=== PATIENT | male | born 1980 | race Caucasian/White ===

== ENCOUNTER 2023-06-09 13:59 | Observation (INO) | payer OTHER, SELFPAY ==
--- NOTE | ~2023-06-09 | XR_ITS ---
EXAMINATION: [id number] INDICATION: Nasogastric tube insertion TECHNIQUE: Portable AP abdomen COMPARISON: None available FINDINGS: A nasogastric tube is in the stomach. The visualized lung bases are clear. The bowel gas pa ttern is unremarkable. IMPRESSION: 1. Nasogastric tube in the stomach. Reviewed, dictated and finalized at location B.
--- NOTE | ~2023-06-09 | CT_ITS ---
EXAMINATION: CT abdomen pelvis w con INDICATION: Right sided abdominal TECHNIQUE: Computed tomographic images of the abdomen and pelvis were obtained after the administrati on of 100 cc of Omnipaque 350 intravenous contrast. The dose-length product (DLP) was 351.00 mGy-cm. Automated exposure control and iterative reconstruction technique were employed. COMPARISON: None available FINDINGS: The lung bases are clear. The heart size is normal. A nasogastric tube is in the stomach. T he liver, spleen, pancreas, gallbladder, and adrenal glands are normal. The kidneys are unremarkable. No pathologically enlarged abdominal or pelvic lymph nodes are identified. No free intraperitoneal g as or evidence of bowel obstruction. The appendix is normal. There is a small left inguinal hernia co ntaining fat. There is an age-indeterminate superior endplate fracture of L1. IMPRESSION: 1. No CT correlate for the patient's symptoms. Reviewed, dictated and finalized at location B.
--- NOTE | 2023-06-09 14:08 | PC.NURSE ---
pt laying on ground outside then pacing in and out of department.
[2023-06-09 14:17] VITALS: BP 132/98; PULSE 63; RESP 20; TEMP 35.8; O2SAT 100
--- NOTE | 2023-06-09 14:26 | PC.NURSE ---
Pts license given back to patient, pt returned to [facility] to await room.
[2023-06-09 14:37] LABS: Basophils Absolute Auto 0.1 K/mm3 (0.0-0.1); Basophils Percent Auto 0.5 % (0.2-1.2); Eosinophils Percent Auto 0.1 % (0-4.4); Hematocrit 38.3 % (37.0-47.0); Hemoglobin 12.5 g/dL (12.0-15.0); Immature Granulocyte Absolute 0.12 K/mm3 (0.00-0.031); Immature Granulocyte Percent A 0.6 % (0-0.5); Lymphocytes Absolute Auto 0.51 K/mm3 (0.9-3.2); Lymphocytes Percent Auto 2.6 % (18.3-44.2); Mean Corpuscular HGB Conc 32.6 g/dl (32-36); Mean Corpuscular Hemoglobin 27.3 pg (26-34); Mean Corpuscular Volume 83.6 fl (80-100); Mean Platelet Volume 11.3 fl (7.4-10.4); Monocytes Absolute Auto 0.8 K/mm3 (0.1-0.6); Monocytes Percent Auto 4.2 % (2.6-8.5); Neutrophils Absolute Auto 18.4 K/mm3 (1.3-6.7); Platelet Count Result 281 k/mm3 (150-375); Red Blood Count 4.58 M/mm3 (4.2-5.4); Red Cell Distribution Width 15.1 % (11.5-14.5)
[2023-06-09 14:48] LABS: Alanine Aminotransferase 18 U/L (6-35); Albumin Level 2.7 g/dL (3.5-5.1); Alkaline Phosphatase 54 U/L (38-126); Anion Gap 9 mmol/L (8-16); Aspartate Amino Transferase 20 U/L (14-36); Bilirubin,Total 0.5 mg/dL (0.2-1.3); Blood Urea Nitrogen 12 mg/dL (7-17); Calcium 5.4 mg/dL (8.4-10.2); Carbon Dioxide 13 mmol/L (22-30); Chloride 119 mmol/L (98-107); Estimated CRCL calculation 156 ml/min; Estimated Glomerular Filt Rate > 60; Glucose 103 mg/dL (65-110); Lipase 23 U/L (23-300); Potassium 2.2 mmol/L (3.4-5.0); Sodium 141 mmol/L (137-145)
[2023-06-09 14:51] LABS: Appearance Urine Clear (Clear); Bacteria Urine None Seen /hpf; Bilirubin Urine Negative (Negative); Blood Urine Negative (Negative); Color Urine Dark Yellow (Yellow); Glucose Urine UA Negative (Negative); Ketones Urine 4+ mg/dL (Negative); Leukocyte Esterase Ur Trace LEU/UL (Negative); Nitrate Urine Negative (Negative); Non Pathogenic Casts 0-2; Protein Urine 1+ mg/dL (Negative); RBC Urine 0-2 /hpf (0-2); Specific Grav Ur 1.027 (1.001-1.035); Squamous Epithelial Cell Urine None seen /hpf (Few); WBC Urine 0-5 /hpf; pH Urine 8.5 (5.0-9.0)
[2023-06-09 14:59] LABS: Add Urine Microscopic? YES
--- NOTE | 2023-06-09 15:02 | ECG_ITS ---
Measurements Intervals [place] Rate: 64 P: 69 MO: 171 QRS: -37 QRSD: 101 T: 15 QT: 463 QTc: 481 Interpretive Statements SINUS RHYTHM WITH MARKED SINUS ARRHYTHMIA VERSUS BLOCKED PACS MARKED LEFT AXIS DEVIATION [QRS AXIS < -30] ABNORMAL ECG NO PREVIOUS ECG AVAILABLE FOR COMPARISON Electronically Signed On 06-09-2023 17:17:41 CDT by Andrei Enamorado M.D.
--- NOTE | 2023-06-09 15:07 | PC.NURSE ---
Pt attempting to drink water from sink in joining room, re directed multiple times and advised to not drink anything. EDP Dr Potter also re directed pt when he was found with his head under the sink drinking water.
[2023-06-09] MEDS: ONDANSETRON INJ 4 MG/2 ML VIAL IV PUSH (15:17)
[2023-06-09] MEDS: SODIUM CHLORIDE 0.9% IV 1,000 ML 999 ML IV CONT ×2 (15:17→19:35)
[2023-06-09] MEDS: LORazepam INJ (*CRX) 2 MG/ML VIAL 0.5 MG IV PUSH (15:18)
--- NOTE | 2023-06-09 15:42 | PC.NURSE ---
pt to CT via stretcher at this time
[2023-06-09] MEDS: PROMETHAZINE HCL 25 MG/ML AMPUL 12.5 MG IV PUSH (16:07)
[2023-06-09] MEDS: POTASSIUM CHLORIDE INJ 40 MEQ in SODIUM CHLORIDE 0.9% IV 500 ML 130 MEQ IVPB (16:14)
[2023-06-09] MEDS: MORPHINE SULFATE (*CRX) 4 MG/ML INJ IV PUSH ×2 (16:37→21:32)
[2023-06-09 16:46] VITALS: BP 133/89; PULSE 74; RESP 18; O2SAT 100
--- NOTE | 2023-06-09 16:46 | PC.NURSE ---
Pt continues to drink water from the sink, again re directed and advised to remain NPO.
[2023-06-09 17:24] VITALS: BP 155/95; PULSE 63; RESP 20; O2SAT 100
[2023-06-09 17:49] LABS: Alanine Aminotransferase 29 U/L (6-50); Albumin Level 4.9 g/dL (3.5-5.1); Alkaline Phosphatase 73 U/L (38-126); Aspartate Amino Transferase 39 U/L (17-59); Blood Urea Nitrogen 16 mg/dL (9-20); Carbon Dioxide 21 mmol/L (22-30); Chloride 105 mmol/L (98-107); Estimated CRCL calculation 119 ml/min; Estimated Glomerular Filt Rate > 60; Glucose 116 mg/dL (65-110); Potassium 3.8 mmol/L (3.4-5.0)
[2023-06-09 17:55] LABS: Anion Gap 12 mmol/L (8-16); Sodium 138 mmol/L (137-145)
--- NOTE | 2023-06-09 18:04 | ED.GENADULT ---
HPI - General Adult General Chief complaint: Nausea/Vomiting/Diarrhea Stated complaint: abd pain/dry heaves Time Seen by Provider: 06/09/23 14:57 History of Present Illness HPI narrative: Patient is a 43-year-old male who presents to the ER with abdominal pain and vomiting. Pain began last night. Right-sided. He believes it is related to diverticulitis he has had in the past. Reports it causes him to have severe emesis. Denies history of cyclic vomiting. Denies marijuana use but he did tell the nurse that he took some Gummies last night. No fevers or chills or sweats. Patient continues to get up and walk to the sink to drink water and then promptly vomits. Related Data Allergies Allergy/AdvReac Type Severity Reaction Status Date / Time No Known Allergies Allergy Verified 06/09/23 14:59 Review of Systems Review of Systems: All systems reviewed & are unremarkable except as noted in HPI and below Constitutional: Constitutional: Denies chills and Denies fever(s) ENT: Denies nasal congestion and Denies sore throat Cardiovascular: Cardiovascular: Denies chest pain, Denies rapid heart rate and Denies radiating jaw, neck or arm pain Respiratory: Respiratory: Denies cough and Denies dyspnea Gastrointestinal: Gastrointestinal: Reports abdominal pain, Denies constipation, Denies diarrhea, Reports nausea and Reports vomiting Genitourinary: Genitourinary: Denies oliguria and Denies urinary frequency PMFSH Past Medical History Medical History (Updated 06/09/23 @ 19:12 by Josue Potter MD) Diverticulitis Surgical History Surgical History (Updated 06/09/23 @ 19:07 by Josue Potter MD) No history of previous surgery Exam Narrative: GENERAL: Well appearing and actively vomiting, well-nourished. HEAD: Normocephalic, atraumatic. EYES: PERRL and EOMI. ENT: Mucous membranes moist. NECK: Supple. CHEST: Clear to auscultation. No respiratory distress. HEART: Regular rate and rhythm. Normal peripheral pulses. ABDOMEN: Soft, tender to palpation right abdomen with guarding both upper and lower quadrants. Nondistended, normal active bowel sounds. EXTREMITIES: Normal range of motion. No edema. SKIN: Warm, dry, no rash. NEURO: Alert and oriented x3. PSYCH: Normal mood and affect. Course Course Emergency Course: Patient improving with Zofran/Phenergan/Ativan/morphine. Admit to hospital service. Replacing potassium. Vital Signs Vital signs: Vital Signs Temperature 96.4 F L 06/09/23 14:17 Pulse Rate 63 06/09/23 14:17 Respiratory Rate 20 06/09/23 14:17 Blood Pressure 132/98 H 06/09/23 14:17 Pulse Oximetry 100 06/09/23 14:17 Oxygen Delivery Room Air 06/09/23 14:17 Temperature 96.4 F L 06/09/23 14:17 Pulse Rate 63 06/09/23 17:24 Respiratory Rate 20 06/09/23 17:24 Blood Pressure 155/95 H 06/09/23 17:24 Pulse Oximetry 100 06/09/23 17:24 Oxygen Delivery Room Air 06/09/23 14:17 Medical Decision Making Vital Signs Vital Signs: Vital Signs Temperature 96.4 F L 06/09/23 14:17 Pulse Rate 63 06/09/23 14:17 Respiratory Rate 20 06/09/23 14:17 Blood Pressure 132/98 H 06/09/23 14:17 Pulse Oximetry 100 06/09/23 14:17 Oxygen Delivery Room Air 06/09/23 14:17 Temperature 96.4 F L 06/09/23 14:17 Pulse Rate 63 06/09/23 17:24 Respiratory Rate 20 06/09/23 17:24 Blood Pressure 155/95 H 06/09/23 17:24 Pulse Oximetry 100 06/09/23 17:24 Oxygen Delivery Room Air 06/09/23 14:17 Lab Data 06/09/23 14:25 06/09/23 17:23 Labs: Lab Results 06/09/23 06/09/23 Range/Units 14:25 14:32 WBC 20.0 H (4.5-10.0) K/mm3 RBC 4.58 (4.2-5.4) M/mm3 Hgb 12.5 (12.0-15.0) g/dL Hct 38.3 (37.0-47.0) % MCV 83.6 (80-100) fl MCH 27.3 (26-34) pg MCHC 32.6 (32-36) g/dl RDW 15.1 H (11.5-14.5) % Plt Count 281 (150-375) k/mm3 MPV 11.3 H (7.4-10.4) fl Immature Gran % (Auto) 0.6 H (0
--- NOTE | 2023-06-09 18:04 | PC.NURSE ---
Potassium infusion stopped per EDP Dr. Tariq APPLE
--- NOTE | 2023-06-09 18:05 | PC.NURSE ---
This RN observed pt with head under faucet drinking the water and redirected the pt and advised him to not drink from the faucet
[2023-06-09] MEDS: MORPHINE SULFATE (*CRX) 2 MG/ML INJ IV PUSH (18:59)
[2023-06-09] MEDS: METOCLOPRAMIDE HCL INJ 10 MG/2 ML VIAL 5 MG IV PUSH (19:00)
--- NOTE | 2023-06-09 19:25 | PC.NURSE ---
This RN assumed care of patient. This RN took pt report from VIRAL [place].
[2023-06-09 20:00] VITALS: BP 124/69; PULSE 79; RESP 14; TEMP 36.4; O2SAT 98
--- NOTE | 2023-06-09 20:32 | PM.IMHP ---
H&P: HPI History of Present Illness Date/Time: 06/09/23 20:32 Chief Complaint: Intractable nausea vomiting and abdominal pain Narrative: This is a 43-year-old male with past medical history of diverticulitis diagnosed in January of this year, who throws up once a week, who is presenting with a 1 day history of acute abdominal pain with dry heaving, and nonbloody nonbilious liquidy nausea and vomiting. The patient reports a chronic history of nausea and vomiting. Acutely he started throwing up last night, a ton of liquid, and presents here now. He reports a presentation last summer and [facility] at [facility] of significant nausea vomiting abdominal pain which was diagnosed as diverticulosis that could become diverticulitis on colonoscopy. The patient also reports a chronic history of constipation and acutely he says it has been 24 hour since he has had a bowel movement. He says he tries to go and he cannot and this exacerbates his abdominal pain. He also reports dehydration and he was found to constantly be drinking under the faucets during his emergency department visit here. The patient's current symptoms are high anxiety and high stomach pain. He reports the morphine, normal saline, Zofran, Ativan, promethazine helped his symptoms for about 30 minutes and now he has the symptoms again. To me he denied any history of drug use, but to the ER he reported that he does take marijuana gummies. His social history is interesting. He has 2 jobs which stress [employer] lot. 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 His other medical problems include some sort of respiratory issue for which she uses a rescue inhaler. This is not on his medication profile. His medication history also includes Lexapro and Protonix. Per him. He is allergic to pollen and mold. In the emergency room he is noted to be extremely restless, agitated, getting up and moving around a lot in the room. I also saw him making multiple attempts to dry heave in the sink. Initial set of labs in the ER noted significant electrolyte abnormalities. However repeat labs showed that these were incorrect lab numbers. Review of Systems Review of Systems: Otherwise unremarkable, see HPI. [facility] Past Medical History Medical History (Updated 06/09/23 @ 20:46 by Guille Holden MD) Diverticulitis Surgical History Surgical History (Updated 06/09/23 @ 19:07 by Josue Potter MD) No history of previous surgery Social History Social History Smoking status: Never smoker Substance use type: marijuana Lack of Transportation: YES Lack of Food: Often True Current Housing: I Have Housing Concerned About Future Housing: No Difficulty Paying Gas/Electric Bills: YES Difficulty Paying for Meds: YES Currently Unemployed: No Education: Bachelor's Degree Difficulty w/ Childcare or Family Care: No Spiritual care concerns: No Comments See HPI Meds Home Medications and Allergies Home Medications Medication Instructions Recorded Confirmed Type trazodone 100 mg tablet 150 mg PO HS 06/09/23 06/09/23 History Vital Signs Vital Signs - 24 hr 06/09/23 14:17 06/09/23 16:46 06/09/23 17:24 Temperature 96.4 F L Pulse Rate 63 74 63 Respiratory Rate 20 18 20 Blood Pressure 132/98 H 133/89 155/95 H Pulse Oximetry 100 100 100 Oxygen Delivery Room Air Exam Narrative: Gen: in acute distress. moving around the room a lot HENT: unremarkable Neck: Supple, full ROM Chest: Tachypnea. no abnormal resp. sounds. CTAB CV: tachycardic, nl s1/s2, no murmurs Abd: soft, ttp in multiple quadrants. bs not heard. Ext: No LE Edema Psych: Very restless and agitative. Appears to be withdrawing off some substance. Neuro: no deficits H&P: Results Labs Labs: Short CBC 06/09/23 Range/Units 14:25 WBC 20.0 H (4.5-10.0) K/mm3 Hgb 12.5 (12.0-15.0) g/dL Hct
--- NOTE | 2023-06-09 20:33 | ADMGEN ---
This patient, Mario Mcclain, was admitted to Virtual Bed 3rd Floor-1. Patient/family oriented to hospital policies and general routines including ID bracelet, bed and alarms, visiting hours, pain management, procedures, bathroom and other care routines, personal items, smoking policy, room service/diet, and visiting hours. Information on how to activate the Rapid Response Team has been discussed. Patient/Family are encouraged to report perceived risks to care and to ask questions if they do not understand what they are told or what they should do.
[2023-06-09 21:16] VITALS: BMI 24.6
[2023-06-09] MEDS: SODIUM CHLORIDE 0.9% IV 1,000 ML 100 ML IV CONT (21:21)
[2023-06-09] MEDS: traZODone HCL 50 MG TABLET 150 MG PO (21:21)
[2023-06-09 21:56] VITALS: BP 113/59; PULSE 76; RESP 14; TEMP 36.7; O2SAT 100
[2023-06-10] MEDS: MORPHINE SULFATE (*CRX) 4 MG/ML INJ IV PUSH (01:48)
[2023-06-10 05:35] VITALS: BP 107/52; PULSE 65; RESP 13; TEMP 36.2; O2SAT 97
[2023-06-10] MEDS: POTASSIUM CHLORIDE 20 MEQ PACKET (FOR LIQUID) 40 MEQ PO (08:17)
[2023-06-10 08:29] LABS: Basophils Percent Auto 0.3 % (0.2-1.2); Eosinophils Absolute Auto 0.1 K/mm3 (0-0.3); Eosinophils Percent Auto 0.8 % (0-4.4); Hematocrit 36.1 % (42.0-52.0); Hemoglobin 11.8 g/dL (14.0-18.0); Immature Granulocyte Absolute 0.05 K/mm3 (0.00-0.031); Immature Granulocyte Percent A 0.4 % (0-0.5); Lymphocytes Absolute Auto 1.67 K/mm3 (0.9-3.2); Lymphocytes Percent Auto 14.2 % (18.3-44.2); Mean Corpuscular HGB Conc 32.7 g/dl (32-36); Mean Corpuscular Hemoglobin 27.4 pg (26-34); Monocytes Absolute Auto 1.1 K/mm3 (0.1-0.6); Monocytes Percent Auto 9.4 % (2.6-8.5); Neutrophils Absolute Auto 8.8 K/mm3 (1.3-6.7); Neutrophils Percent Auto 74.9 % (45.5-73.1); Platelet Count Result 244 k/mm3 (150-375); Red Cell Distribution Width 15.6 % (11.5-14.5); White Blood Count 11.8 K/mm3 (4.5-10.0)
[2023-06-10 08:38] LABS: Alanine Aminotransferase 23 U/L (6-50); Albumin Level 4.3 g/dL (3.5-5.1); Alkaline Phosphatase 72 U/L (38-126); Anion Gap 10 mmol/L (8-16); Aspartate Amino Transferase 31 U/L (17-59); Bilirubin,Total 0.5 mg/dL (0.2-1.3); Blood Urea Nitrogen 12 mg/dL (9-20); Calcium 8.4 mg/dL (8.4-10.2); Carbon Dioxide 23 mmol/L (22-30); Chloride 105 mmol/L (98-107); Estimated CRCL calculation 136 ml/min; Estimated Glomerular Filt Rate > 60; Glucose 89 mg/dL (65-110); Potassium 3.6 mmol/L (3.4-5.0); Sodium 138 mmol/L (137-145)
--- NOTE | 2023-06-10 10:25 | PM.IMPN ---
Progress Note: A&P Assessment and Plan (1) Cyclical vomiting syndrome: Code(s): R11.15 - Cyclical vomiting syndrome unrelated to migraine Status: Acute (2) Intractable nausea and vomiting: Code(s): R11.2 - Nausea with vomiting, unspecified Status: Acute (3) Dehydration: Code(s): E86.0 - Dehydration Status: Acute (4) Drug use: Code(s): F19.90 - Other psychoactive substance use, unspecified, uncomplicated Status: Acute (5) History of diverticulitis: Code(s): Z87.19 - Personal history of other diseases of the digestive system Status: Acute (6) Abdominal pain: Code(s): R10.9 - Unspecified abdominal pain Status: Acute (7) Metabolic acidosis: Code(s): E87.20 - Acidosis, unspecified Status: Acute (8) Leukocytosis: Code(s): D72.829 - Elevated white blood cell count, unspecified Status: Acute Plan Advanced diet at lunch. If patient tolerates regular food then he can discharge home. Labs have resolved after IV fluid hydration. Subjective Date/time seen: 06/10/23 10:25 Interval history: This is a 43-year-old male with a past medical history of diverticulitis with recurrent vomiting. He presented to the ER with complaints of nausea and vomiting. I was called to the bedside because he is at the nurses desk and anxious to find out what the plan is for the day. This morning he asks for clear liquids as he no longer has nausea or vomiting and denies abdominal pain. I advanced his diet he tolerated clear liquids. 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 He frequently is short on bunn and recently ran out of money for food. Yesterday he went to the [facility] with a friend to work out but he was not feeling well because he had not eaten in a few days so instead he went to [employer] and ?Gorged himself?. Shortly after that he started vomiting. He was witnessed drinking water out of the faucet in the ER. Labs on admission had a leukocytosis of 20 but that resolved after IV fluid hydration. Patient is a marijuana user so this could be a cyclic vomiting seen with marijuana use. It sounds like he over ate after not eating for few days so it is likely that the vomiting was related to that as well. He also states that he takes antidepressants and when he takes them on an empty stomach that also makes him vomit. I offered for him to see GI because it seems like he has been at multiple facilities with this recurrent vomiting but he declined at this time. I will put referrals for outpatient GI should he wish to see them. Otherwise encouraged him to take his antidepressant after eating. Health will spoke with him about can concerns with dehydration and how to prevent dehydration during his work. Patient will advance his diet for lunch to general diet and if he tolerates food then he can discharge. Review of Systems Review of Systems: All systems reviewed & are unremarkable except as noted in HPI and below Exam Narrative: General: well-nourished, well-appearing 43-year-old male, sitting up in bed, anxious Neuro: awake, alert and oriented x4, speech clear, no focal neuro deficits noted HEENMT: normocephalic, atraumatic, EOMI, sclerae anicteric, moist oral mucosa Respiratory: Clear to auscultation bilaterally without crackles, rhonchi or wheezes, nonlabored breathing Cardio: regular rate, regular rhythm with S1-S2 Abdomen: nondistended, normoactive bowel sounds, soft, nontender to palpation Extremities: no edema, erythema, or tenderness to palpation, DP pulses 2+ bilaterally Skin: no rashes or lesions, warm and dry Psych: flat affect, anxious Objective Data Vital Signs Vital Signs: Vital Signs - 24 hr 06/09/23 14:17 06/09/23 16:46 06/09/23 17:24 Temperature 96.4 F L Pulse Rate 63 74 63 Respiratory Rate 20 18 20 [place]
--- NOTE | 2023-06-10 10:33 | PM.DS ---
DS: Admitting Diagnosis Discharge Date FridayJune 10 Admitting Diagnosis Nausea and vomiting DS: Discharge Diagnosis Discharge Diagnosis (1) Cyclical vomiting syndrome: Code(s): R11.15 - Cyclical vomiting syndrome unrelated to migraine Status: Acute (2) Intractable nausea and vomiting: Code(s): R11.2 - Nausea with vomiting, unspecified Status: Acute (3) Dehydration: Code(s): E86.0 - Dehydration Status: Acute (4) Drug use: Code(s): F19.90 - Other psychoactive substance use, unspecified, uncomplicated Status: Acute (5) History of diverticulitis: Code(s): Z87.19 - Personal history of other diseases of the digestive system Status: Acute (6) Abdominal pain: Code(s): R10.9 - Unspecified abdominal pain Status: Acute (7) Metabolic acidosis: Code(s): E87.20 - Acidosis, unspecified Status: Acute (8) Leukocytosis: Code(s): D72.829 - Elevated white blood cell count, unspecified Status: Acute Plan Advanced diet at lunch. If patient tolerates regular food then he can discharge home. CT scan without diverticulitis and patient declines GI consult. Labs have resolved after IV fluid hydration. DS: Summary Hospital Course Hospital Course: This is a 43-year-old male with past medical history of diverticulitis diagnosed in January of this year, who throws up once a week, who is presenting with a 1 day history of acute abdominal pain with dry heaving, and nonbloody nonbilious liquidy nausea and vomiting.? The patient reports a chronic history of nausea and vomiting.? Acutely he started throwing up last night, a ton of liquid, and presents here now.? He reports a presentation last summer and [facility] at [facility] of significant nausea vomiting abdominal pain which was diagnosed as diverticulosis that could become diverticulitis on colonoscopy. ?The patient also reports a chronic history of constipation and acutely he says it has been 24 hour since he has had a bowel movement.? He says he tries to go and he cannot and this exacerbates his abdominal pain.? He also reports dehydration and he was found to constantly be drinking under the faucets during his emergency department visit here. ? The patient's current symptoms are high anxiety and high stomach pain.? He reports the morphine, normal saline, Zofran, Ativan, promethazine helped his symptoms for about 30 minutes and now he has the symptoms again. ? To me he denied any history of drug use, but to the ER he reported that he does take marijuana gummies. ? His social history is interesting.? He has 2 jobs which stress [employer] lot.? 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 ? His other medical problems include some sort of respiratory issue for which she uses a rescue inhaler.? This is not on his medication profile.? His medication history also includes Lexapro and Protonix.? Per him. ? He is allergic to pollen and mold. ? In the emergency room he is noted to be extremely restless, agitated,? getting up and moving around a lot in the room.? I also saw him making multiple attempts to dry heave in the sink. ? Initial set of labs in the ER noted significant electrolyte abnormalities.? However repeat labs showed that these were incorrect lab numbers. Interval history 06/10-Patient is doing well today. Tolerated clear liquids for breakfast and wants food for lunch. Will advance his diet and if he tolerates food without nausea or vomiting then will d/c home. Status at Discharge Cognitive/behavioral status at discharge: A&Ox4, anxious Time Spent with Patient Time attestation: Total time spent providing and/or coordinating discharge services:40 Exam Narrative: General: well-nourished, well-appearing 43-year-old male, sitting up in bed, anxious Neuro: awake, alert and oriented x4, speech clear, no focal neuro deficits noted HEENMT: no
[2023-06-10] MEDS: ACETAMINOPHEN 500 MG TABLET PO (11:49)
== END 2023-06-10 14:05 | disposition home or self-care (01) ==
LOC: ANHED 16:12 → ANH3MEDSUR 19:12
PROVIDERS: Emergency Medicine; Nurse Practitioner Acute Care; Admitting Provider Internal Medicine; Emergency Provider Emergency Medicine; Visit Provider Student in an Organized Health Care Education/Training Program
DX: R11.15 Cyclical vomiting syndrome unrelated to migraine (principal); E87.6 Hypokalemia; E87.20 Acidosis, unspecified; E86.0 Dehydration; D72.829 Elevated white blood cell count, unspecified; R10.9 Unspecified abdominal pain; F12.90 Cannabis use, unspecified, uncomplicated; Z87.19 Personal history of other diseases of the digestive system; F19.90 Other psychoactive substance use, unspecified, uncomplicated
CPT/HCPCS: 36415; 74177; 80053; 81001; 83690; 85025; 93005; 96361; 96365; 96366; 96374; 96375; 96376; 99285; A9270; G0378; J2060; J2270; J2405; J2550; J2765; J3480; J7030; J7040; Q9967

== ENCOUNTER 2024-05-21 08:49 | Emergency (ER) | payer OTHER, SELFPAY ==
--- NOTE | ~2024-05-21 | CT_ITS ---
CT abdomen pelvis w con Ordering provider: Natalie Wall PA-C History: 44 years Male with . diffuse abd pain, N/V, hx diverticulitis . Comparison: None. Technique: CT abdomen and pelvis with IV and without oral contrast. Automated exposure control and it erative reconstruction technique were employed. The dose-length product was 293.97 mGy-cm. 100 mL Omn ipaque 350 was given IV Findings: VISUALIZED LOWER CHEST: Normal. UPPER ABDOMINAL ORGANS: Liver: Normal. Gallbladder: Normal. Spleen: Normal. Stomach/duodenum: Normal. Pancreas: Normal. Adrenals: Normal. Kidneys: Normal. PELVIC ORGANS: The bladder is normal. BOWEL AND MESENTERY: Colon: No evidence of diverticulitis. Fecal material is loaded in the colon suggestive of constipatio n. The appendix is not demonstrated. No evidence of appendicitis. Small Bowel: Normal. No obstruction. Peritoneum/mesentery: No free air or free fluid. No mesenteric lymphadenopathy. RETROPERITONEUM: Normal aorta. No retroperitoneal lymphadenopathy. MUSCULOSKELETAL: Superficial soft tissues: The superficial soft tissues are normal. Bones: Age appropriate degenerative changes of the spine. Compression fracture of L1 is seen which is most likely chronic. IMPRESSION: 1. No evidence of appendicitis, diverticulitis or intestinal obstruction. 2. Constipation. Reviewed, dictated and finalized at location A.
[2024-05-21 08:55] VITALS: PULSE 71; RESP 16; TEMP 36.8; O2SAT 100
--- NOTE | 2024-05-21 09:47 | ED.NAVMDI ---
HPI - Nausea/Vomiting/Diarrhea General Chief complaint: Nausea/Vomiting/Diarrhea Stated complaint: nausea and vomiting Time Seen by Provider: 05/21/24 09:25 Source: patient Mode of arrival: EMS Limitations: no limitations History of Present Illness HPI Narrative: Patient is a 44-year-old male who presents the ED via EMS with report of nausea and vomiting. Patient reports history of cyclic vomiting syndrome. States it has been awhile since this last episode, but later reported being in an outside hospital last week for similar symptoms. Reports symptoms have continued to worsen since then, unable to keep down food or drink. Complains of pain diffusely across to abdomen. Does report history of diverticulosis/diverticulitis. Reports diarrhea yesterday. Has not had a bowel movement today. Denies fevers. Denies urinary complaints. Patient does use marijuana. Related Data Home Medications Medication Instructions Recorded Confirmed escitalopram oxalate 20 mg tablet 20 mg PO DAILY 06/09/23 06/09/23 pantoprazole 40 mg tablet,delayed 40 mg PO BID 06/09/23 06/09/23 release trazodone 100 mg tablet 150 mg PO HS 06/09/23 06/09/23 Allergies Allergy/AdvReac Type Severity Reaction Status Date / Time acetaminophen [From Vicodin] AdvReac Unknown Verified 05/21/24 09:23 hydrocodone [From Vicodin] AdvReac Unknown Verified 05/21/24 09:23 Review of Systems Review of Systems: CONSTITUTIONAL: Denies fever, chills, or sweats. GASTROINTESTINAL: See HPI. GENITOURINARY: Denies dysuria or hematuria. MUSCULOSKELETAL: Denies back pain, extremity pain, myalgia. All systems reviewed & are unremarkable except as noted in HPI and below PMFSH Past Medical History Medical History Cyclical vomiting syndrome Diverticulitis Surgical History Surgical History No history of previous surgery Social History Social History Smoking status: Never smoker Substance use type: marijuana Lack of Transportation: YES Lack of Food: Often True Current Housing: I Have Housing Concerned About Future Housing: No Difficulty Paying Gas/Electric Bills: YES Difficulty Paying for Meds: YES Currently Unemployed: No Education: Bachelor's Degree Difficulty w/ Childcare or Family Care: No Spiritual care concerns: No Exam Narrative: GENERAL: Ill-appearing, disheveled, thin, moaning, unable to sit still, pacing back and forth throughout ED room. HEAD: Normocephalic, atraumatic. RESPIRATORY: Airway patent, respirations tachypneic but nonlabored. Clear to auscultation bilaterally, no rales, rhonchi, wheezing. CARDIOVASCULAR: Borderline tachycardic with regular rhythm without murmurs, rubs, or gallops. ABDOMINAL: Soft, diffuse nonfocal tenderness with any light palpation throughout abdomen. Nondistended. Normoactive BS. MUSCULOSKELETAL: Moves all extremities. No gross deformities. SKIN: Warm, dry, normal color. NEURO: A&O X3. Speech clear. Cranial nerves II-XII grossly intact. Steady gait. No ataxic movements. PSYCHIATRIC: Agitated, labile mood, anxious. Course Vital Signs Vital signs: Vital Signs Temperature 98.3 F 05/21/24 08:55 Pulse Rate 71 05/21/24 08:55 Respiratory Rate 16 05/21/24 08:55 Pulse Oximetry 100 05/21/24 08:55 Temperature 98.3 F 05/21/24 08:55 Pulse Rate 60 05/21/24 11:25 Respiratory Rate 14 05/21/24 11:25 Blood Pressure 143/85 H 05/21/24 11:25 Pulse Oximetry 100 05/21/24 11:26 MDM - Nausea/Vomiting/Diarrhea MDM Narrative Medical decision making narrative: Patient presented to ED with nausea, vomiting, history of cyclic vomiting syndrome. Marijuana use. Patient unable to sit still, difficult to obtain initial vital signs/physical exam/uncooperative. CBC with white blood cell count of 1
[2024-05-21] MEDS: MORPHINE SULFATE (*CRX) 4 MG/ML INJ IV PUSH (09:48)
[2024-05-21 09:50] LABS: Basophils Absolute Auto 0.1 K/mm3 (0.0-0.1); Basophils Percent Auto 0.4 % (0.2-1.2); Eosinophils Percent Auto 0.2 % (0-4.4); Hematocrit 41.1 % (42.0-52.0); Hemoglobin 13.3 g/dL (14.0-18.0); Immature Granulocyte Absolute 0.05 K/mm3 (0.00-0.031); Immature Granulocyte Percent A 0.3 % (0-0.5); Lymphocytes Absolute Auto 0.71 K/mm3 (0.9-3.2); Lymphocytes Percent Auto 4.2 % (18.3-44.2); Mean Corpuscular HGB Conc 32.4 g/dl (32-36); Mean Corpuscular Hemoglobin 28.5 pg (26-34); Mean Platelet Volume 11.3 fl (7.4-10.4); Monocytes Absolute Auto 0.4 K/mm3 (0.1-0.6); Monocytes Percent Auto 2.5 % (2.6-8.5); Neutrophils Absolute Auto 15.5 K/mm3 (1.3-6.7); Neutrophils Percent Auto 92.4 % (45.5-73.1); Platelet Count Result 332 k/mm3 (150-375); Red Blood Count 4.67 M/mm3 (4.6-6.20); Red Cell Distribution Width 15.4 % (11.5-14.5); White Blood Count 16.8 K/mm3 (4.5-10.0)
[2024-05-21] MEDS: SODIUM CHLORIDE 0.9% IV 1,000 ML 999 ML IV CONT ×2 (09:50→11:24)
[2024-05-21] MEDS: METOCLOPRAMIDE HCL INJ 10 MG/2 ML VIAL IV PUSH (09:51)
[2024-05-21] MEDS: diphenhydrAMINE HCl INJ 50 MG/ML VIAL 25 MG IV PUSH (09:51)
[2024-05-21 10:13] LABS: Alanine Aminotransferase 22 U/L (6-50); Alkaline Phosphatase 80 U/L (38-126); Anion Gap 14 mmol/L (4-12); Aspartate Amino Transferase 25 U/L (17-59); Bilirubin,Total 0.4 mg/dL (0.2-1.3); Blood Urea Nitrogen 8 mg/dL (9-20); Calcium 9.5 mg/dL (8.4-10.2); Carbon Dioxide 24 mmol/L (22-30); Chloride 103 mmol/L (98-107); Estimated CRCL calculation 124 ml/min; Estimated Glomerular Filt Rate > 60; Glucose 114 mg/dL (65-110); Lipase 55 U/L (23-300); Potassium 3.9 mmol/L (3.4-5.0); Sodium 141 mmol/L (137-145)
[2024-05-21 10:23] LABS: Lactic Acid Reflex 3.4 mmol/L (0.7-2.0)
--- NOTE | 2024-05-21 10:24 | PC.NURSE ---
heard screaming in room, went to check in on pt and RN. pt being belligerent towards RN. Appeared to have pt cornered in room. RN attempting to de-escalete the pt. pt remained argumentative. Male presence did have more calming affect on the pt. pt shortly after had a verbal spar with security at door. This RN both, by taking over care for the pt, administering prescribed Haldol IVP x1 from [facility].. introduced myself to pt, educated on his needs to be addressed by me. pt agreeable
[2024-05-21 10:25] LABS: Appearance Urine Cloudy (Clear); Bacteria Urine None Seen /hpf; Bilirubin Urine Negative (Negative); Blood Urine Negative (Negative); Color Urine Yellow (Yellow); Glucose Urine UA Negative (Negative); Ketones Urine 1+ mg/dL (Negative); Leukocyte Esterase Ur Negative LEU/UL (Negative); Nitrate Urine Negative (Negative); Non Pathogenic Casts 0-2; Protein Urine Trace mg/dL (Negative); RBC Urine 0-2 /hpf (0-2); Squamous Epithelial Cell Urine None Seen /hpf (Few); WBC Urine 0-5 /hpf (0-3); pH Urine 8.5 (5.0-9.0)
[2024-05-21] MEDS: HALOPERIDOL LACTATE 5 MG/ML VIAL IV PUSH (10:30)
[2024-05-21 10:36] LABS: Barbiturate Screen Urine Negative (Negative); Benzodiazepines Screen Urine Negative (Negative)
[2024-05-21 10:43] LABS: Amphetamine Screen Urine Negative (Negative); Cannabinoid Screen Urine Positive (Negative); Cocaine Screen Urine Negative (Negative); Methadone Screen Urine Negative (Negative); Opiate Screen Urine Positive (Negative); Phencyclidine Screen Urine Negative (Negative)
[2024-05-21 10:54] LABS: Add Urine Microscopic? YES
[2024-05-21 11:25] VITALS: BP 143/85; PULSE 60; RESP 14; O2SAT 100
[2024-05-21 11:26] VITALS: O2SAT 100
[2024-05-21 12:26] LABS: Lactic Acid Reflex 1.7 mmol/L (0.7-2.0)
[2024-05-21 13:02] LABS: Reflex Lactic Acid Yes or No Add Lactic
== END 2024-05-21 13:04 | disposition home or self-care (01) ==
PROVIDERS: Emergency Provider Physician Assistant
DX: R11.15 Cyclical vomiting syndrome unrelated to migraine (principal); F12.90 Cannabis use, unspecified, uncomplicated; Z79.899 Other long term (current) drug therapy; K59.00 Constipation, unspecified
CPT/HCPCS: 36415; 74177; 80053; 80307; 81001; 83605; 83690; 85025; 96361; 96374; 96375; 99284; J1200; J1630; J2270; J2765; J7030; Q9967